=== PATIENT | female | born 1995 | race Caucasian/White ===

== ENCOUNTER 2023-01-16 18:49 | Emergency (ER) | payer BC, OTHER ==
[~2023-01-16] VITALS: Ht 162.6 cm; Wt 59.0 kg
[2023-01-16 19:14] VITALS: BP_SYST 139; PULSE 93; RESP 16; TEMP 98.1; O2SAT 97
[2023-01-16] MEDS ORDERED: AMOX-423 PO (21:36)
[2023-01-16 21:40] VITALS: BP_SYST 139; PULSE 93; RESP 16; TEMP 98.1; O2SAT 97
[2023-01-16 21:40] LABS: INFLUENZA TYPE A Negative (NEGATIVE); INFLUENZA TYPE B NEGATIVE (NEGATIVE)
== END 2023-01-16 21:40 | disposition home or self-care (01) ==
LOC: SED 18:49
DX: J02.9 Acute pharyngitis, unspecified (principal); R50.9 Fever, unspecified; R05.9 Cough, unspecified; K21.9 Gastro-esophageal reflux disease without esophagitis; Z79.899 Other long term (current) drug therapy; Z20.822 Contact with and (suspected) exposure to COVID-19
CPT/HCPCS: 36415; 99283

== ENCOUNTER 2023-01-21 08:12 | Emergency (ER) | payer BC ==
[~2023-01-21] VITALS: Ht 162.6 cm; Wt 58.5 kg
[~2023-01-21 08:12] MED LIST: AMOX-423 PO
[2023-01-21 08:27] VITALS: BP_SYST 123; PULSE 105; RESP 16; TEMP 98.3; O2SAT 97
[2023-01-21 09:15] LABS: STREPTOCOCCUS A SCREEN (RAPID) NEGATIVE (NEGATIVE)
[2023-01-21 09:28] LABS: MONOTEST NEGATIVE (NEGATIVE)
[2023-01-21] MEDS ORDERED: IBUP-1969 PO (09:41)
[2023-01-21] MEDS ORDERED: PRED50TA PO (09:41)
[2023-01-21 10:13] VITALS: BP_SYST 123; PULSE 105; RESP 16; TEMP 98.3; O2SAT 97
== END 2023-01-21 10:15 | disposition home or self-care (01) ==
LOC: SED 08:12
DX: J02.9 Acute pharyngitis, unspecified (principal); R05.9 Cough, unspecified; K21.9 Gastro-esophageal reflux disease without esophagitis; Z79.899 Other long term (current) drug therapy
CPT/HCPCS: 36415; 70360-TC; 86308-TC; 86403; 87081; 99284